=== PATIENT | female | born 1960 | race Caucasian/White ===

== ENCOUNTER 2017-01-30 19:05 | Inpatient (IN) | payer MEDICAID ==
[~2017-01-30] VITALS: Ht 162.6 cm; Wt 59.9 kg
[~2017-01-30 19:05] MED LIST: IOHEXOL-300 100 ML BOTTLE ONE; SODIUM CHLORIDE 0.9% 10ML VIAL ONE
[2017-01-30] MEDS ORDERED: SODIUM CHLORIDE 0.9% 1,000 ML IV ONE (19:15)
[2017-01-30] MEDS ORDERED: ONDANSETRON HCL 4MG/2ML VIAL IV STA (19:15)
[2017-01-30] MEDS ORDERED: MORPHINE SULFATE 4 MG/ML CPJ (NOT FOR IM USE) IV STA (19:15)
[2017-01-30 19:39] LABS: PROTHROMBIN TIME 10.7 sec
[2017-01-30 19:40] LABS: BASOPHILS % 0.2 % (0.0-2.0); EOSINOPHILS % 0.1 % (0.0-5.0); HEMATOCRIT. 30.4 % (36.0-48.0); LYMPHOCYTES % 8.8 % (20.0-50.0); MEAN CORPUSCULAR HEMOGLOBIN 30.7 pg (28.0-32.0); MEAN CORPUSCULAR VOLUME 93.5 fL (81.0-99.0); MEAN PLATELET VOLUME 8.3 fl (7.4-10.4); MONOCYTES % 5.1 % (2.0-8.0); NEUTROPHILS % 85.8 % (40.0-76.0); PLATELET 405 x1000/uL (130-400); RED BLOOD CELL COUNT 3.25 mill/uL (4.2-5.4); RED CELL DISTRIBUTION WIDTH 15.8 % (11.6-14.6)
[2017-01-30 19:47] LABS: CARBON DIOXIDE 27 mEq/L (21-32); CHLORIDE 101 mEq/L (98-107)
[2017-01-30 20:37] LABS: CLARITY URINE CLEAR (CLEAR); COLOR URINE YELLOW (YELLOW); GLUCOSE URINE NEGATIVE (NEGATIVE); KETONES URINE 1+ (NEGATIVE); LEUKOCYTE ESTERASE URINE 3+ (NEGATIVE); NITRITE URINE NEGATIVE (NEGATIVE); OCCULT BLOOD URINE 2+ (NEGATIVE); PH URINE >=9.0 (4.5-8.0); PROTEIN URINE NEGATIVE (NEGATIVE); SPECIFIC GRAVITY URINE 1.009 (1.005-1.030); UROBILINOGEN URINE 0.2 E.U./dL (0.2-1.0)
[2017-01-30] MEDS ORDERED: PIPERACILLIN SODIUM/TAZOBACTAM 4.5 G in DEXT 5% WATER 100 ML IV NR (23:00)
[2017-01-31] VITALS (7 sets, daily range): BP systolic 86–105; BP diastolic 49–57
[2017-01-31] MEDS ORDERED: HYDROCODONE/ACETAMINOPHEN 5/325MG TABLET PO PRN (03:45)
[2017-01-31] MEDS ORDERED: ZOLPIDEM TARTRATE 5MG TABLET PO PRN (03:45)
[2017-01-31] MEDS ORDERED: ONDANSETRON HCL 4MG/2ML VIAL IV PRN ×2 (03:45→08:15)
[2017-01-31] MEDS ORDERED: DEXT 5%/0.45% NACL 1000ML 1,000 ML IV SCH (05:30)
[2017-01-31] MEDS ORDERED: LEVOFLOXACIN 500MG PREMIX 100 ML IV SCH (07:00)
[2017-01-31] MEDS ORDERED: ACETAMINOPHEN 650MG/20.3ML UDC GT PRN (08:15)
[2017-01-31] MEDS ORDERED: DOCUSATE SODIUM 100MG CAPSULE PO PRN (08:15)
[2017-01-31] MEDS ORDERED: CLONIDINE 0.1MG TABLET PO PRN (08:15)
[2017-01-31] MEDS ORDERED: MAGNESIUM/ALUMINUM HYDROXIDE/SIMETHICONE 30ML UDC PO PRN (08:15)
[2017-01-31] MEDS ORDERED: HYDROMORPHONE HCL/PF 2MG/ML CPJ IV PRN (08:15)
[2017-01-31] MEDS ORDERED: GUAIFENESIN 200MG/10ML SUGAR FREE UDC PO PRN (08:15)
[2017-01-31] MEDS ORDERED: ACETAMINOPHEN 650MG SUPP PR PRN (08:15)
[2017-01-31] MEDS ORDERED: IPRATROPIUM/ALBUTEROL 0.5-3(2.5)MG/3ML NEB INH PRN (08:15)
[2017-01-31] MEDS ORDERED: DIPHENHYDRAMINE 50MG/ML VIAL IV PRN (08:15)
[2017-01-31] MEDS ORDERED: NA PHOS,M-B/NA PHOS,DI-BA ENEMA 118ML PR PRN (08:15)
[2017-01-31] MEDS: SODIUM CHLORIDE 0.9% 1,000 ML IV SCH (09:57)
[2017-01-31] MEDS: ENOXAPARIN 40MG/0.4ML SYR SUBCUT SCH (09:57)
[2017-01-31 11:30] LABS: BASOPHILS % 0.6 % (0.0-2.0); EOSINOPHILS % 0.2 % (0.0-5.0); HEMATOCRIT. 28.7 % (36.0-48.0); HEMOGLOBIN. 9.6 g/dL (12.0-16.0); LYMPHOCYTES % 17.1 % (20.0-50.0); MEAN CORPUSCULAR HEMOGLOBIN 31.5 pg (28.0-32.0); MEAN CORPUSCULAR VOLUME 94.6 fL (81.0-99.0); MEAN PLATELET VOLUME 8.7 fl (7.4-10.4); NEUTROPHILS % 75.1 % (40.0-76.0); PLATELET 391 x1000/uL (130-400); RED BLOOD CELL COUNT 3.04 mill/uL (4.2-5.4); RED CELL DISTRIBUTION WIDTH 16.5 % (11.6-14.6)
[2017-01-31 11:50] LABS: CARBON DIOXIDE 25 mEq/L (21-32); CHLORIDE 104 mEq/L (98-107); HDL CHOLESTEROL 45 mg/dL (40-59); LDL CHOLESTEROL 97 mg/dL (5-100)
[2017-01-31] MEDS: SODIUM CHLORIDE 0.9% INJ 3ML FLUSH IVF SCH ×2 (15:38→21:58)
[2017-01-31] MEDS: ACETAMINOPHEN 325MG TABLET PO PRN (16:57)
[2017-01-31] MEDS: HYDROCODONE/ACETAMINOPHEN 5/325MG TABLET PO PRN (22:34)
[2017-02-01] VITALS: BP 110/64
[2017-02-01 04:00] VITALS: BP 104/62
[2017-02-01] MEDS: SODIUM CHLORIDE 0.9% INJ 3ML FLUSH IVF SCH ×2 (06:42→14:44)
[2017-02-01 07:02] LABS: AMYLASE 75 IU/L (25-115); CARBON DIOXIDE 27 mEq/L (21-32); CHLORIDE 106 mEq/L (98-107)
[2017-02-01 07:10] LABS: BASOPHILS % 0.6 % (0.0-2.0); EOSINOPHILS % 0.5 % (0.0-5.0); HDL CHOLESTEROL 46 mg/dL (40-59); HEMOGLOBIN. 9.4 g/dL (12.0-16.0); LDL CHOLESTEROL 100 mg/dL (5-100); LYMPHOCYTES % 19.5 % (20.0-50.0); MEAN CORPUSCULAR HEMOGLOBIN 31.6 pg (28.0-32.0); MEAN CORPUSCULAR VOLUME 94.3 fL (81.0-99.0); MEAN PLATELET VOLUME 8.5 fl (7.4-10.4); NEUTROPHILS % 71.4 % (40.0-76.0); PLATELET 385 x1000/uL (130-400); RED BLOOD CELL COUNT 2.97 mill/uL (4.2-5.4); RED CELL DISTRIBUTION WIDTH 16.6 % (11.6-14.6)
[2017-02-01 08:00] VITALS: BP 100/57
[2017-02-01] MEDS: ENOXAPARIN 40MG/0.4ML SYR SUBCUT SCH (08:30)
[2017-02-01 12:00] VITALS: BP 111/64
[2017-02-01] MEDS: LEVOFLOXACIN 500MG TABLET PO SCH (12:10)
[2017-02-01 16:00] VITALS: BP 97/56
[2017-02-01 20:00] VITALS: BP 106/58
[2017-02-01] MEDS: HYDROCODONE/ACETAMINOPHEN 5/325MG TABLET PO PRN (21:15)
[2017-02-02] VITALS: BP 110/57
[2017-02-02 04:00] VITALS: BP 102/60
[2017-02-02] MEDS: SODIUM CHLORIDE 0.9% INJ 3ML FLUSH IVF SCH ×3 (06:00→20:44)
[2017-02-02 08:00] VITALS: BP 115/63
[2017-02-02] MEDS: ENOXAPARIN 40MG/0.4ML SYR SUBCUT SCH (09:10)
[2017-02-02] MEDS: SODIUM CHLORIDE 0.9% 1,000 ML IV SCH ×2 (09:14→20:36)
[2017-02-02] MEDS: LEVOFLOXACIN 500MG TABLET PO SCH (11:13)
[2017-02-02 12:00] VITALS: BP 106/59
[2017-02-02 16:00] VITALS: BP 94/66
[2017-02-02 20:00] VITALS: BP 101/63
[2017-02-02] MEDS: HYDROCODONE/ACETAMINOPHEN 5/325MG TABLET PO PRN (20:36)
[2017-02-03] VITALS: BP 99/56
[2017-02-03 03:24] LABS: CLARITY URINE CLEAR (CLEAR); COLOR URINE YELLOW (YELLOW); GLUCOSE URINE NEGATIVE (NEGATIVE); KETONES URINE NEGATIVE (NEGATIVE); LEUKOCYTE ESTERASE URINE 1+ (NEGATIVE); NITRITE URINE NEGATIVE (NEGATIVE); OCCULT BLOOD URINE TRACE (NEGATIVE); PROTEIN URINE NEGATIVE (NEGATIVE); SPECIFIC GRAVITY URINE 1.008 (1.005-1.030); UROBILINOGEN URINE 0.2 E.U./dL (0.2-1.0)
[2017-02-03 04:00] VITALS: BP 108/63
[2017-02-03] MEDS: SODIUM CHLORIDE 0.9% INJ 3ML FLUSH IVF SCH ×2 (06:29→14:00)
[2017-02-03] MEDS: ACETAMINOPHEN 325MG TABLET PO PRN (06:56)
[2017-02-03 08:00] VITALS: BP 100/60
[2017-02-03] MEDS: LEVOFLOXACIN 500MG TABLET PO SCH (10:00)
[2017-02-03] MEDS: ENOXAPARIN 40MG/0.4ML SYR SUBCUT SCH (10:00)
[2017-02-03 12:00] VITALS: BP 95/73
[2017-02-03 12:08] VITALS: BP 100/60
[2017-02-03] MEDS ORDERED: ultram PO (14:42)
== END 2017-02-03 14:15 | disposition home health service (06) ==
LOC: ER 20:43 → 6EST 23:55 → EDBEDREQ 01-31 → EDBEDREQSVC 01-31 → EDBEDREQTM 01-31 → EDBEDREQ 01-31 00:54 → EDBEDREQSVC 01-31 00:54 → ENRESERV 01-31 01:28
PROVIDERS: ADMIT Family Medicine; ATTEND Family Medicine
DX: K80.50 Calculus of bile duct without cholangitis or cholecystitis without obstruction (principal); K76.89 Other specified diseases of liver; E44.1 Mild protein-calorie malnutrition; N39.0 Urinary tract infection, site not specified; I10 Essential (primary) hypertension; D64.9 Anemia, unspecified; K21.9 Gastro-esophageal reflux disease without esophagitis; Z96.641 Presence of right artificial hip joint; F32.9 Major depressive disorder, single episode, unspecified; K83.8 Other specified diseases of biliary tract; R74.0 Nonspecific elevation of levels of transaminase and lactic acid dehydrogenase [LDH]; Z68.22 Body mass index [BMI] 22.0-22.9, adult
CPT/HCPCS: 36415; 74177; 74181; 76705; 80053; 80061; 81001; 82150; 83036; 83690; 85025; 85610; 87086; 96361; 96365; 96375; 97116; 97163; 97166; 99285; A4216; J1170; J1650; J1956; J2270; J2405; J2543; J3490; J7030; J7060; Q9967

== ENCOUNTER 2017-02-25 09:33 | Emergency (ER) | payer MEDICAID ==
[~2017-02-25] VITALS: Ht 167.6 cm; Wt 53.0 kg
[~2017-02-25 09:33] MED LIST changes: -IOHEXOL-300 100 ML BOTTLE ONE; -SODIUM CHLORIDE 0.9% 10ML VIAL ONE; +ultram PO
[2017-02-25 09:55] VITALS: BP 143/85
[2017-02-25] MEDS ORDERED: ACETAMINOPHEN 325MG TABLET PO ONE (11:45)
[2017-02-25] MEDS ORDERED: BACITRACIN ZINC OINT UDPKT TOP ONE (11:45)
== END 2017-02-25 12:11 | disposition home or self-care (01) ==
LOC: ER 09:33
DX: S89.81XD Other specified injuries of right lower leg, subsequent encounter (principal); X58.XXXD Exposure to other specified factors, subsequent encounter; K21.9 Gastro-esophageal reflux disease without esophagitis; Z48.02 Encounter for removal of sutures
CPT/HCPCS: 99283; X7700; Z7610

== ENCOUNTER 2018-02-18 08:20 | Emergency (ER) | payer MEDICAID ==
[~2018-02-18] VITALS: Ht 167.6 cm; Wt 53.0 kg
[2018-02-18] MEDS ORDERED: SERT20OR6 PO (08:29)
[2018-02-18] MEDS ORDERED: URSO300C4 PO (08:29)
[2018-02-18] MEDS ORDERED: SODIUM CHLORIDE 0.9% 1,000 ML IV ONE ×2 (08:33→09:32)
[2018-02-18 08:58] LABS: EOSINOPHILS % 0.8 % (0.0-5.0); HEMATOCRIT. 38.2 % (36.0-48.0); HEMOGLOBIN. 12.8 g/dL (12.0-16.0); MEAN CORPUSCULAR HEMOGLOBIN 31.1 pg (28.0-32.0); MEAN PLATELET VOLUME 9.6 fl (7.4-10.4); MONOCYTES % 4.7 % (2.0-8.0); NEUTROPHILS % 65.5 % (40.0-76.0); PLATELET 254 x1000/uL (130-400); RED BLOOD CELL COUNT 4.11 mill/uL (4.2-5.4); RED CELL DISTRIBUTION WIDTH 14.1 % (11.6-14.6)
[2018-02-18 08:59] LABS: CLARITY URINE CLEAR (CLEAR); COLOR URINE YELLOW (YELLOW); KETONES URINE NEGATIVE (NEGATIVE); LEUKOCYTE ESTERASE URINE 3+ (NEGATIVE); NITRITE URINE NEGATIVE (NEGATIVE); OCCULT BLOOD URINE 2+ (NEGATIVE); PROTEIN URINE NEGATIVE (NEGATIVE); SPECIFIC GRAVITY URINE 1.018 (1.005-1.030); UROBILINOGEN URINE 0.2 E.U./dL (0.2-1.0)
[2018-02-18 09:03] LABS: CHLORIDE 107 mEq/L (98-107)
[2018-02-18 09:07] LABS: PARTIAL THROMBOPLASTIN TIME 23.3 sec (23.4-31.0); PROTHROMBIN TIME 10.3 sec (9.4-11.6)
[2018-02-18] MEDS ORDERED: KETOROLAC 30MG/ML VIAL IV ONE (09:45)
[2018-02-18] MEDS ORDERED: CEFTRIAXONE 1 G PREMIX 50 ML IV ONE (09:45)
[2018-02-18 12:48] VITALS: BP 99/70
== END 2018-02-18 12:51 | disposition home or self-care (01) ==
LOC: ER 08:20
DX: R10.12 Left upper quadrant pain (principal); N39.0 Urinary tract infection, site not specified; K21.9 Gastro-esophageal reflux disease without esophagitis; F32.9 Major depressive disorder, single episode, unspecified; Z98.890 Other specified postprocedural states
CPT/HCPCS: 36415; 74176; 80053; 81003; 83690; 85025; 85610; 85730; 87086; 96365; 96375; 99285; J0696; J1885; J7030; Z7610

== ENCOUNTER 2018-03-01 10:37 | Emergency (ER) | payer MEDICAID ==
[~2018-03-01] VITALS: Ht 162.6 cm; Wt 54.0 kg
[~2018-03-01 10:37] MED LIST changes: +SERT20OR6 PO; +URSO300C4 PO
[2018-03-01 11:54] LABS: CLARITY URINE CLEAR (CLEAR); COLOR URINE YELLOW (YELLOW); KETONES URINE NEGATIVE (NEGATIVE); LEUKOCYTE ESTERASE URINE 1+ (NEGATIVE); NITRITE URINE NEGATIVE (NEGATIVE); OCCULT BLOOD URINE 1+ (NEGATIVE); PROTEIN URINE NEGATIVE (NEGATIVE); SPECIFIC GRAVITY URINE 1.021 (1.005-1.030); UROBILINOGEN URINE 0.2 E.U./dL (0.2-1.0)
[2018-03-01] MEDS ORDERED: SODIUM CHLORIDE 0.9% 1,000 ML IV ONE (14:30)
[2018-03-01] MEDS ORDERED: KETOROLAC 30MG/ML VIAL IV ONE (14:30)
[2018-03-01 16:58] LABS: BASOPHILS % 1.4 % (0.0-2.0); EOSINOPHILS % 0.2 % (0.0-5.0); HEMATOCRIT. 37.9 % (36.0-48.0); HEMOGLOBIN. 12.7 g/dL (12.0-16.0); LYMPHOCYTES % 30.5 % (20.0-50.0); MEAN CORPUSCULAR HEMOGLOBIN 30.9 pg (28.0-32.0); MEAN CORPUSCULAR VOLUME 92.2 fL (81.0-99.0); MEAN PLATELET VOLUME 10.7 fl (7.4-10.4); MONOCYTES % 3.9 % (2.0-8.0); PLATELET 260 x1000/uL (130-400); RED BLOOD CELL COUNT 4.11 mill/uL (4.2-5.4); RED CELL DISTRIBUTION WIDTH 13.6 % (11.6-14.6)
[2018-03-01 17:02] LABS: CHLORIDE 107 mEq/L (98-107)
[2018-03-01] MEDS ORDERED: CEFTRIAXONE SODIUM 1 G/VIAL IM ONE (19:15)
[2018-03-01 20:05] VITALS: BP 110/66
== END 2018-03-01 20:00 | disposition home or self-care (01) ==
LOC: ER 11:17
DX: N12 Tubulo-interstitial nephritis, not specified as acute or chronic (principal); R03.0 Elevated blood-pressure reading, without diagnosis of hypertension
CPT/HCPCS: 36415; 76770; 80048; 81003; 84132; 85025; 87086; 96372; 96374; 99285; J0696; J1885; J7030

== ENCOUNTER 2018-05-15 12:32 | Emergency (ER) | payer MEDICAID ==
[~2018-05-15] VITALS: Ht 165.1 cm; Wt 57.0 kg
[~2018-05-15 12:32] MED LIST changes: +ASA5EC PO; +ATOR20TA PO
[2018-05-15] MEDS ORDERED: SODIUM CHLORIDE 0.9% 1,000 ML IV ONE (13:03)
[2018-05-15] MEDS ORDERED: KETOROLAC 30MG/ML VIAL IV STA (13:03)
[2018-05-15 15:49] VITALS: BP 103/65
== END 2018-05-15 15:49 | disposition home or self-care (01) ==
LOC: ER 12:32
DX: B34.9 Viral infection, unspecified (principal); I51.7 Cardiomegaly; Z86.73 Personal history of transient ischemic attack (TIA), and cerebral infarction without residual deficits; Z98.890 Other specified postprocedural states
CPT/HCPCS: 71045; 93005; 96374; 99284; J1885; J7030; Z7610

== ENCOUNTER 2018-06-05 17:18 | Inpatient (IN) | payer MEDICAID ==
[~2018-06-05] VITALS: Ht 167.6 cm; Wt 54.4 kg
[2018-06-05 18:16] LABS: BASOPHILS % 1.1 % (0.0-2.0); EOSINOPHILS % 0.2 % (0.0-5.0); HEMOGLOBIN. 12.2 g/dL (12.0-16.0); LYMPHOCYTES % 25.7 % (20.0-50.0); MEAN CORPUSCULAR HEMOGLOBIN 31.4 pg (28.0-32.0); MEAN CORPUSCULAR VOLUME 92.5 fL (81.0-99.0); MEAN PLATELET VOLUME 10.2 fl (7.4-10.4); MONOCYTES % 6.1 % (2.0-8.0); NEUTROPHILS % 66.9 % (40.0-76.0); PLATELET 241 x1000/uL (130-400); RED BLOOD CELL COUNT 3.89 mill/uL (4.2-5.4)
[2018-06-05 18:23] LABS: PROTHROMBIN TIME 10.4 sec (9.1-11.1)
[2018-06-05 18:25] LABS: CHLORIDE 108 mEq/L (98-107)
[2018-06-05 18:26] LABS: ETHANOL BLOOD < 10 mg/dL
[2018-06-05] MEDS ORDERED: ASPIRIN 325MG EC TABLET PO ONE (20:00)
[2018-06-05 21:01] LABS: CLARITY URINE CLEAR (CLEAR); COLOR URINE YELLOW (YELLOW); KETONES URINE NEGATIVE (NEGATIVE); LEUKOCYTE ESTERASE URINE 1+ (NEGATIVE); NITRITE URINE NEGATIVE (NEGATIVE); OCCULT BLOOD URINE 1+ (NEGATIVE); PROTEIN URINE NEGATIVE (NEGATIVE); SPECIFIC GRAVITY URINE 1.018 (1.005-1.030); UROBILINOGEN URINE 0.2 E.U./dL (0.2-1.0)
[2018-06-05 21:12] LABS: *AMPHETAMINES SCREEN URINE NEGATIVE (NEGATIVE); *BARBITURATES SCREEN URINE NEGATIVE (NEGATIVE); *BENZODIAZEPINES SCREEN URINE NEGATIVE (NEGATIVE); *COCAINE SCREEN URINE NEGATIVE (NEGATIVE)
[2018-06-05 21:13] LABS: CANNABINOID URINE SCREEN NEGATIVE (NEGATIVE); METHADONE URINE SCREEN NEGATIVE (NEGATIVE); OPIATES URINE SCREEN NEGATIVE (NEGATIVE); PHENCYCLIDINE URINE SCREEN NEGATIVE (NEGATIVE)
[2018-06-06] VITALS (7 sets, daily range): BP systolic 95–118; BP diastolic 55–102
[2018-06-06 06:02] LABS: CHLORIDE 109 mEq/L (98-107)
[2018-06-06 06:05] LABS: HDL CHOLESTEROL 50 mg/dL (40-59); LDL CHOLESTEROL 135 mg/dL (5-100)
[2018-06-06 06:19] LABS: BASOPHILS % 0.9 % (0.0-2.0); EOSINOPHILS % 0.8 % (0.0-5.0); HEMATOCRIT. 35.4 % (36.0-48.0); HEMOGLOBIN. 11.9 g/dL (12.0-16.0); LYMPHOCYTES % 39.3 % (20.0-50.0); MEAN CORPUSCULAR HEMOGLOBIN 31.5 pg (28.0-32.0); MEAN CORPUSCULAR VOLUME 93.3 fL (81.0-99.0); MEAN PLATELET VOLUME 10.1 fl (7.4-10.4); MONOCYTES % 7.5 % (2.0-8.0); NEUTROPHILS % 51.5 % (40.0-76.0); PLATELET 225 x1000/uL (130-400); RED BLOOD CELL COUNT 3.79 mill/uL (4.2-5.4); RED CELL DISTRIBUTION WIDTH 13.6 % (11.6-14.6)
[2018-06-06] MEDS ORDERED: GUAIFENESIN 200MG/10ML SUGAR FREE UDC PO PRN (06:45)
[2018-06-06] MEDS ORDERED: CLONIDINE 0.1MG TABLET PO PRN (06:45)
[2018-06-06] MEDS ORDERED: MAGNESIUM/ALUMINUM HYDROXIDE/SIMETHICONE 30ML UDC PO PRN (06:45)
[2018-06-06] MEDS ORDERED: ACETAMINOPHEN 650MG/20.3ML UDC GT PRN (06:45)
[2018-06-06] MEDS ORDERED: ONDANSETRON HCL 4MG/2ML INJ IV PRN (06:45)
[2018-06-06] MEDS ORDERED: ACETAMINOPHEN 325MG TABLET PO PRN (06:45)
[2018-06-06] MEDS ORDERED: IPRATROPIUM/ALBUTEROL 0.5-3(2.5)MG/3ML NEB INH PRN (06:45)
[2018-06-06] MEDS ORDERED: ACETAMINOPHEN 650MG SUPP PR PRN (06:45)
[2018-06-06] MEDS ORDERED: DOCUSATE SODIUM 100MG CAPSULE PO PRN (06:45)
[2018-06-06] MEDS ORDERED: NA PHOS,M-B/NA PHOS,DI-BA ENEMA 118ML PR PRN (06:45)
[2018-06-06] MEDS ORDERED: URSODIOL 300MG CAPSULE PO SCH (07:15)
[2018-06-06] MEDS ORDERED: SERTRALINE HCL 25MG TABLET PO SCH (07:30)
[2018-06-06] MEDS: ENOXAPARIN 40MG/0.4ML SYR SUBCUT SCH (08:27)
[2018-06-06] MEDS: ASPIRIN 325MG EC TABLET PO SCH (08:27)
[2018-06-06] MEDS: SODIUM CHLORIDE 0.9% INJ 3ML FLUSH IVF SCH ×2 (13:59→21:49)
[2018-06-06] MEDS ORDERED: ATORVASTATIN CALCIUM 20MG TABLET PO SCH (21:00)
[2018-06-07] VITALS: BP 91/54
[2018-06-07 04:00] VITALS: BP 91/59
[2018-06-07] MEDS: SODIUM CHLORIDE 0.9% INJ 3ML FLUSH IVF SCH ×2 (06:39→13:14)
[2018-06-07 06:43] LABS: EOSINOPHILS % 1.2 % (0.0-5.0); HEMATOCRIT. 38.6 % (36.0-48.0); HEMOGLOBIN. 12.8 g/dL (12.0-16.0); LYMPHOCYTES % 34.7 % (20.0-50.0); MEAN CORPUSCULAR HEMOGLOBIN 30.8 pg (28.0-32.0); MEAN CORPUSCULAR VOLUME 92.8 fL (81.0-99.0); MEAN PLATELET VOLUME 10.4 fl (7.4-10.4); NEUTROPHILS % 56.1 % (40.0-76.0); PLATELET 228 x1000/uL (130-400); RED BLOOD CELL COUNT 4.16 mill/uL (4.2-5.4); RED CELL DISTRIBUTION WIDTH 13.6 % (11.6-14.6)
[2018-06-07 06:49] LABS: CHLORIDE 109 mEq/L (98-107)
[2018-06-07 07:09] LABS: HDL CHOLESTEROL 54 mg/dL (40-59); LDL CHOLESTEROL 132 mg/dL (5-100)
[2018-06-07 08:00] VITALS: BP 104/59
[2018-06-07] MEDS: ASPIRIN 325MG EC TABLET PO SCH (08:56)
[2018-06-07] MEDS: ENOXAPARIN 40MG/0.4ML SYR SUBCUT SCH (08:57)
[2018-06-07 11:59] VITALS: BP 104/63
[2018-06-07 16:00] VITALS: BP 103/60
== END 2018-06-07 18:24 | disposition left against medical advice (07) | DRG 45 ==
LOC: ER 19:06 → 5WST 20:29 → EDBEDREQTM 20:37 → EDBEDREQ 20:37 → EDBEDREQSVC 20:37 → ENRESERV 22:35
PROVIDERS: ADMIT Family Medicine; ATTEND Family Medicine
DX: I63.9 Cerebral infarction, unspecified (principal); I27.20 Pulmonary hypertension, unspecified; E78.5 Hyperlipidemia, unspecified; R73.9 Hyperglycemia, unspecified; Z53.21 Procedure and treatment not carried out due to patient leaving prior to being seen by health care provider; F43.10 Post-traumatic stress disorder, unspecified; H91.93 Unspecified hearing loss, bilateral; I10 Essential (primary) hypertension; I34.1 Nonrheumatic mitral (valve) prolapse; I34.0 Nonrheumatic mitral (valve) insufficiency; Z86.73 Personal history of transient ischemic attack (TIA), and cerebral infarction without residual deficits; Z79.82 Long term (current) use of aspirin; Z79.899 Other long term (current) drug therapy
CPT/HCPCS: 36415; 70551; 71045; 80048; 80061; 80305; 82962; 83036; 83721; 84484; 93005; 93306; 93880; 97162; 97165; 99285; G0482; J1650

== ENCOUNTER 2018-08-18 15:26 | Emergency (ER) | payer MEDICAID ==
[~2018-08-18] VITALS: Ht 170.2 cm; Wt 56.5 kg
[~2018-08-18 15:26] MED LIST changes: -SERT20OR6 PO; -URSO300C4 PO
[2018-08-18] MEDS ORDERED: SODIUM CHLORIDE 0.9% 1,000 ML IV ONE (15:32)
[2018-08-18 15:43] LABS: BASOPHILS % 0.8 % (0.0-2.0); EOSINOPHILS % 0.4 % (0.0-5.0); HEMATOCRIT. 38.6 % (36.0-48.0); HEMOGLOBIN. 12.9 g/dL (12.0-16.0); LYMPHOCYTES % 31.9 % (20.0-50.0); MEAN CORPUSCULAR HEMOGLOBIN 31.1 pg (28.0-32.0); MEAN CORPUSCULAR VOLUME 92.9 fL (81.0-99.0); MEAN PLATELET VOLUME 10.1 fl (7.4-10.4); NEUTROPHILS % 60.9 % (40.0-76.0); PLATELET 256 x1000/uL (130-400); RED BLOOD CELL COUNT 4.15 mill/uL (4.2-5.4); RED CELL DISTRIBUTION WIDTH 14.5 % (11.6-14.6)
[2018-08-18 15:47] LABS: CHLORIDE 108 mEq/L (98-107)
[2018-08-18 15:51] LABS: ETHANOL BLOOD < 10 mg/dL; INR 1.1; PARTIAL THROMBOPLASTIN TIME 26.4 sec (23.4-31.0); PROTHROMBIN TIME 10.6 sec (9.1-11.1)
[2018-08-18 15:54] LABS: LDL CHOLESTEROL 112 mg/dL (5-100)
[2018-08-18 15:56] LABS: CREATINE KINASE 72 IU/L (26-192)
[2018-08-18] MEDS ORDERED: IOHEXOL-350 100 ML BOTTLE ONE ×2 (16:25→19:50)
[2018-08-18 16:45] VITALS: BP 153/61
[2018-08-18] MEDS ORDERED: ALTEPLASE 100MG/VIAL IV NR (16:45)
[2018-08-18] MEDS ORDERED: ALTEPLASE IV ONE (16:50)
[2018-08-18] MEDS ORDERED: CONTAINER EMPTY IV ONE (16:50)
== END 2018-08-18 18:37 | disposition short-term general hospital (02) ==
LOC: ER 15:26 → CANBEDREQ 20:46
DX: I63.9 Cerebral infarction, unspecified (principal); I69.328 Other speech and language deficits following cerebral infarction; I69.320 Aphasia following cerebral infarction; I10 Essential (primary) hypertension; D64.9 Anemia, unspecified; I50.9 Heart failure, unspecified; Z98.890 Other specified postprocedural states; Z79.82 Long term (current) use of aspirin
CPT/HCPCS: 36415; 70450; 70496; 80053; 82550; 83690; 83721; 83880; 84484; 85025; 85610; 85730; 93005; 99291; G0482; J7030; Q9967